=== PATIENT | female | born 1935 | race Caucasian/White ===

== ENCOUNTER → 2017-11-24 | Outpatient (CLI) | payer MEDICARE, BC | LOC: MC.RAD 07:58 | DX: Z12.31 Encounter for screening mammogram for malignant neoplasm of breast (principal); N64.89 Other specified disorders of breast ==

== ENCOUNTER → 2017-12-01 | Outpatient (CLI) | payer MEDICARE, BC | LOC: MC.RAD 13:24 | DX: R92.8 Other abnormal and inconclusive findings on diagnostic imaging of breast (principal); N63.32 Unspecified lump in axillary tail of the left breast | CPT/HCPCS: G0279 ==

== ENCOUNTER → 2018-06-06 | Outpatient (CLI) | payer MEDICARE, BC | LOC: MC.RAD 08:25 | DX: N63.31 Unspecified lump in axillary tail of the right breast (principal); Z87.898 Personal history of other specified conditions | CPT/HCPCS: G0279 ==

== ENCOUNTER → 2019-11-02 | Outpatient (CLI) | payer MEDICARE, BC | LOC: MC.RAD 14:18 | DX: Z12.31 Encounter for screening mammogram for malignant neoplasm of breast (principal); Z78.0 Asymptomatic menopausal state ==

== ENCOUNTER → 2020-05-09 | Outpatient (CLI) | payer MEDICARE, BC ==
[~2020-05-09] MED LIST: AMOXICILLIN 8751 TAB PO; ANTACID500 M1; ASCORBATE CALCIUM PO; EFUDEX40 GM TP; FERROUS SU300 MG/5 M PO; FERROUS SU325 MG/TAB PO; FOSAMAX 70MG TA70 MG PO; FOSAMAX5 MG; GLUCOPHAGE500 MG/TAB PO; INDERAL 10MG10 MG PO; INDERAL 20MG20 MG PO; INLYTA1 MG PO; LASIX 20MG TABL20 MG PO; LEVEMIR100 U/ML SQ; MASON NATURAL2000 IU PO; METHOTREXA2.5 MG/TAB PO; NOVOLOG 100U100 U/M1 SQ; OMEGA-3 1000 MG1 CAP PO; OMNICEF 300MG300 MG PO; PREDNISONE10 MG PO; PRINIVIL10 MG PO; SYNTHROID0.1 MG/TAB PO; TYLENOL 500MG500 MG PO; ULTRAM 50MG TAB50 MG PO; VALIUM 5MG T5 MG/TAB PO; VITAMIN D PO; VTAMINC250TA PO; ZESTRIL 10MG10 MG PO; ZOFRAN8 MG PO; ZYRTEC ALLERGY10 MG PO; [UNRECOGNIZED DRUG - OTHER] PO
== END ==
LOC: MC.RAD 10:37
DX: N63.11 Unspecified lump in the right breast, upper outer quadrant (principal); M79.89 Other specified soft tissue disorders

== ENCOUNTER → 2020-05-30 | Outpatient (CLI) | payer MEDICARE, BC ==
[~2020-05-30] VITALS: Ht 157.5 cm; Wt 54.0 kg
[2020-05-30 09:24] VITALS: BP 159/76; PULSE 65
[2020-05-30 10:10] VITALS: BP 139/68; PULSE 62
--- NOTE | 2020-05-30 10:10 | NUR ---
DR BIRCH IN ROOM, PROCEDURE STARTED
[2020-05-30 10:15] VITALS: BP 149/62; PULSE 67
[2020-05-30 10:25] VITALS: BP 175/78; PULSE 66
--- NOTE | 2020-05-30 10:25 | NUR ---
BIOPSY SPECIMANS OBTAINED PUT IN FORMULIN. BANDAID OVER SITE, PT UP IN W/C, NO C/O PAIN OR CONCERNS
[2020-05-30 10:30] VITALS: BP 191/79; PULSE 66
[2020-05-30 10:45] VITALS: BP 165/87; PULSE 65
== END ==
LOC: COL.RAD 08:52
DX: Z98.890 Other specified postprocedural states (principal); C64.2 Malignant neoplasm of left kidney, except renal pelvis; R22.2 Localized swelling, mass and lump, trunk
CPT/HCPCS: 32108

== ENCOUNTER 2020-06-20 11:41 | Inpatient (IN) | payer MEDICARE, BC ==
[~2020-06-20] VITALS: Ht 157.5 cm; Wt 35.1 kg
[~2020-06-20 11:41] MED LIST changes: -AMOXICILLIN 8751 TAB PO; -ANTACID500 M1; -ASCORBATE CALCIUM PO; -EFUDEX40 GM TP; -FERROUS SU300 MG/5 M PO; -FOSAMAX 70MG TA70 MG PO; -FOSAMAX5 MG; -GLUCOPHAGE500 MG/TAB PO; -INDERAL 10MG10 MG PO; -INLYTA1 MG PO; -LASIX 20MG TABL20 MG PO; -LEVEMIR100 U/ML SQ; -METHOTREXA2.5 MG/TAB PO; -NOVOLOG 100U100 U/M1 SQ; -OMEGA-3 1000 MG1 CAP PO; -OMNICEF 300MG300 MG PO; -PRINIVIL10 MG PO; -TYLENOL 500MG500 MG PO; -ULTRAM 50MG TAB50 MG PO; -VALIUM 5MG T5 MG/TAB PO; -VITAMIN D PO; -VTAMINC250TA PO; -ZESTRIL 10MG10 MG PO; -ZOFRAN8 MG PO; -[UNRECOGNIZED DRUG - OTHER] PO
[2020-06-20 12:26] LABS: BASO # 0.1 (0.0-0.2); BASO % 0.6 % (0.0-2.0); EOS # 0.1 (0.0-0.7); EOS % 0.9 % (0-4.0); GRAN # 11.6 (1.4-6.5); GRAN % 79.4 % (42.2-75.2); HEMATOCRIT 39.1 % (37.0-47.0); HEMOGLOBIN 12.3 g/dl (12.5-16.0); LYMPH # 1.3 (1.2-3.4); LYMPH % 9.2 % (20.0-51.0); MEAN CELL VOLUME 85 fl (80.0-100.0); MEAN CORPUSCULAR HEMOGLOBIN 27 pg (27.0-31.0); MEAN CORPUSCULAR HGB CONC 32 g/dl (33.0-37.0); MEAN PLATELET VOLUME 9.2 fl (7.4-10.4); MONO # 1.3 (0.1-0.6); MONO % 8.9 % (1.7-9.3); PLATELET COUNT 342 K/mm3 (130-400); RED BLOOD COUNT 4.62 M/mm3 (4.10-5.30); REDCELL DISTRIBUTION WIDTH-CV 13.8 % (11.5-14.5)
[2020-06-20 12:32] LABS: ALBUMIN 3.3 gm/dL (3.5-5.0); BILIRUBIN,TOTAL 0.4 mg/dL (0.0-1.0); CALCIUM 8.5 mg/dL (8.4-10.2); CREATININE, serum 0.46 (0.52-1.25); POTASSIUM 3.7 mmol/L (3.4-5.0); TOTAL PROTEIN 6.7 gm/dL (6.4-8.2)
[2020-06-20 12:51] LABS: TROPONIN-I 0.048 ng/mL (0.000-0.035)
[2020-06-20] MEDS ORDERED: ZOFRAN8 MG PO (14:43)
[2020-06-20] MEDS ORDERED: INLYTA1 MG PO (14:52)
[2020-06-20] MEDS ORDERED: ULTRAM 50MG TAB50 MG PO (14:52)
[2020-06-20 15:25] VITALS: BP 119/50; PULSE 100; TEMP 98.6
--- NOTE | 2020-06-20 15:30 | NUR ---
PATIENT ADMITED INTO ROOM 323 FROM ER. A&O BUT SLOW TO RESPOND. DAUGHTER REPORTS THEY THINK THE PATIENT FELL IN THE NIGHT AND WASN'T FOUND TILL MORNING. PATIENT HAS NOT HAD ANY SLEEP. VSS. DENIES PAIN. HEAD TO TOE ASSESSMENT COMPLETE. ORIENTED TO ROOM. DAUGHTER & FRIEND NOW AT BEDSIDE.
--- NOTE | 2020-06-20 17:15 | NUR ---
PATIENT REQUESTING TO GO TO THE BATHROOM AND BECAME VERY DIZZY AND SHAKING WHEN SAT UP WITH PCT AND NURSE. PATIENT WANTING TO LAY BACK DOWN. PATIENT WAS VERY SYMPTOMATIC WITH ACTIVITY. REPOSITIONED TO COMFORT UP IN BED. PURE WICK INPLACE. FAMILY & FRIEND AT BEDSIDE. WILL MONITOR.
[2020-06-20 18:51] VITALS: BP 129/50; PULSE 84; TEMP 99.2
--- NOTE | 2020-06-20 19:30 | NUR ---
Pt. sitting up in bed. Pt. is A&OX3, assessment complete. IV to rt. wrist patent IV fluids infusing per orders. Pt. denies pain or other needs, call light within reach.
[2020-06-20 22:01] VITALS: BP 128/46; PULSE 84; TEMP 97.9
[2020-06-21] VITALS (10 sets, daily range): BP systolic 105–188; BP diastolic 39–91; PULSE 60–87; TEMP 97.7–100.5
--- NOTE | 2020-06-21 07:10 | NUR ---
DURING SHIFT REPORT PATIENT WAS FOUND TO HAVE NOT VOIDED ALL NIGHT AND PURE WICK CANNISTER IS EMPTY. BLADDER SCAN SHOWED 800CC. NOTED ELEVATED B/P WITH A SYSTOLIC IN THE 160-180'S. TEMP OF 100.5. PATIENT SKIN IS WARM TO TOUCH, FACE IS RED, AND SHE REPORTS NOT FEELING WELL. PATIENT IS VERY SYMPTOMATIC WHEN REPOSITIONED AND BECOMES VERY DIZZY. CALLED HOSPITALIST, SEE ORDERS. NURSE, STUDENT NURSE & INSTRUCTOR AT BEDSIDE. AVALOS PLACED STAT, GAVE PRN ZOFRAN & TYLENOL FOR NAUSEA AND FEVER. COOL CLOTH APPLIED TO HEAD. ROOM TEMP TURNED DOWN. WILL MONITOR.
[2020-06-21 07:15] LABS: BASO # 0.1 (0.0-0.2); BASO % 0.5 % (0.0-2.0); EOS # 0.1 (0.0-0.7); GRAN # 7.9 (1.4-6.5); GRAN % 71.1 % (42.2-75.2); LYMPH # 1.9 (1.2-3.4); LYMPH % 16.7 % (20.0-51.0); MEAN CELL VOLUME 86 fl (80.0-100.0); MEAN CORPUSCULAR HEMOGLOBIN 27 pg (27.0-31.0); MEAN CORPUSCULAR HGB CONC 31 g/dl (33.0-37.0); MONO # 1.1 (0.1-0.6); MONO % 9.8 % (1.7-9.3); PLATELET COUNT 353 K/mm3 (130-400); REDCELL DISTRIBUTION WIDTH-CV 14.3 % (11.5-14.5)
[2020-06-21 07:16] LABS: HEMATOCRIT 35.1 % (37.0-47.0)
[2020-06-21 07:32] LABS: CALCIUM 8.1 mg/dL (8.4-10.2); CREATININE, serum 0.54 (0.52-1.25); POTASSIUM 3.8 mmol/L (3.4-5.0)
--- NOTE | 2020-06-21 08:30 | NUR ---
ECHO AT BEDSIDE
--- NOTE | 2020-06-21 09:00 | NUR ---
HOSPITALIST TOBIAS ROUNDING, SEE ORDERS.
--- NOTE | 2020-06-21 09:30 | NUR ---
HOSPITALIST TEAM ROUNDING, SEE ORDERS. PATIENT'S FRIEND AT BEDSIDE.
--- NOTE | 2020-06-21 10:36 | NUR ---
Vancomycin Initial Dosing Pharmacy Note Ordering provider: José Luis Kumar MD Indication/duration: Meningitis, 7 days Relevant comorbidities: renal cancer on chemotherapy LABS: SCr 0.54, CrCl~25, GFR 107 Recommendation: Will give Vancomycin 750 mg IV x1 loading dose, then Vancomycin 500 mg IV q24h. Pharmacy will continue to monitor and check a Vancomycin trough on 06/24/20. Loading dose: 750 mg Maintenance dose: 500 mg every 12 hours Trough goal: 15-20 ug/mL
--- NOTE | 2020-06-21 10:54 | NUR ---
PATIENT GOING DOWN TO MRI VIA BED.
--- NOTE | 2020-06-21 12:10 | NUR ---
PATIENT BACK IN ROOM FROM MRI & LUMBAR PUNCTURE. PATIENT RESTING FLAT TILL 1300. CALL LIGHT IN REACH. NO OTHER NEEDS. STUDENT NURSE AT BEDSIDE.
[2020-06-21 12:32] LABS: GLUCOSE,CSF 75 mg/dL (40-70); TOTAL PROTEIN,CSF 66 mg/dL (15-45)
[2020-06-21 12:43] LABS: CSF MONONUCLEAR 91 % (70-100); CSF POLYMORPHONUCLEAR 10 % (0-6); CSF RBC 1000 /mm3 (0-0)
[2020-06-21 12:45] LABS: CSF APPEARANCE CLEAR; CSF COLOR COLORLESS
[2020-06-21 12:49] LABS: COLLECTION METHOD CATHETER
[2020-06-21 12:50] LABS: PH 6 (5-8); SQUAMOUS EPITHELIAL None Seen /hpf; URINE APPEARANCE Clear; URINE BILIRUBIN Negative (NEGATIVE); URINE BLOOD Negative (NEGATIVE); URINE COLOR Yellow; URINE GLUCOSE Negative (NEGATIVE); URINE KETONE Negative (NEGATIVE); URINE LEUKOCYTE ESTERASE Negative (NEGATIVE); URINE NITRATE Negative (NEGATIVE); URINE PROTEIN(semi-quant) 1+ (NEGATIVE); URINE UROBILINOGEN Negative (NEGATIVE)
[2020-06-21 12:51] LABS: MUCOUS Present /lpf; URINE BACTERIA None Seen /hpf
--- NOTE | 2020-06-21 13:45 | NUR ---
HOSPITALIST TALKED WITH NURSING ABOUT MRI SHOWING ENCEPHALITIS, AND LUMBAR PUNTURE SHOWED SOME BACTERIA. PATIENT PLACED ON PRECAUTIONS, FOR 24 HOURS FROM IV ANTIBIOTICS, PER INFECTIOUS DISEASE RECOMMENDATIONS. PATIENT ALSO PLACED ON TELE. PATIENT IS MUCH MORE A&O AND REPORTS SHE FEELS BETTER. WILL CONTINUE TO MONITOR.
--- NOTE | 2020-06-21 14:31 | NUR ---
Quality Assurance Manager attended clinical rounds with the team then met with patient and her friend, Concepcion (ph#[phone]) to discuss discharge planning. Patient had some difficulty answering questions during intake. Patient lives alone in [place] and sees Dr. Valadez for primary care. Patient obtains medications from [facility], but Concepcion states they are going to change pharmacies to one that will deliver to patient's home. Patient normally is independent with ADLS and does not use DME. Concepcion states patient normally walks 3-4 miles a day. Patient began chemotherapy on 06/12/[address] [facility]. Concepcion states that patient fell in her home and this is not normal for her. Concepcion advised that patient's DPOA-HC is her niece Suki (ph#[phone]) who lives in [place]. Concepcion states the Cancer Center should have a copy. PT/OT have been ordered for patient. Concepcion expressed concern about patient returning home alone upon discharge and thinks patient may need to go to SNF upon discharge. Concepcion is agreeable to have referrals sent to [facility] and [facility] [employer]. Following intake, KWASI contacted both facilities and faxed referrals. KWASI contacted BRANDAN Mccarthy at Dr. Steven's office and left a message. KWASI then received a message from Shari who advised Dr. Steven is in support of patient going to rehab if needed. KWASI also requested a copy of DPOA-HC, which the [facility] faxed over. KWASI placed copy in chart, which designates Suki. KWASI then followed up with Suki on discharge plan. Suki is agreeable to referrals sent and would like to speak with both facilities about visitation. KWASI notified both facilities of this. Discharge Plan: Awaiting PT/OT Eval. Referrals out to [facility] and [facility].
--- NOTE | 2020-06-21 15:29 | NUR ---
Pt had been taking AXITINIB (inlyta) which is a chemotherapy agent at home with her last dose being 06/19. This medication can be present in urine and stool for 42 hours after administration and should be clear from urine and stool as of early this am. If she should restart this medication, precautions of double gloves and gown should be worn when having contact with urine or stool for 42 hours following administration.
--- NOTE | 2020-06-21 21:00 | NUR ---
Patient resting in bed with some complaints of pain to her back. Patient reqests to be turned onto her side. Educated on no free water. Fluids infusing to right wrist. VSS, no fevers. No additional needs at this time. Call light in reach.
[2020-06-22 04:10] VITALS: BP 145/96; PULSE 79; TEMP 98.6
--- NOTE | 2020-06-22 06:35 | NUR ---
Patient is alert and oriented this morning with no complaints.
[2020-06-22 07:26] LABS: BASO # 0.1 (0.0-0.2); BASO % 0.5 % (0.0-2.0); EOS # 0.1 (0.0-0.7); EOS % 1.2 % (0-4.0); GRAN # 6.8 (1.4-6.5); HEMOGLOBIN 10.3 g/dl (12.5-16.0); LYMPH # 1.9 (1.2-3.4); LYMPH % 18.4 % (20.0-51.0); MEAN CELL VOLUME 85 fl (80.0-100.0); MEAN CORPUSCULAR HEMOGLOBIN 26 pg (27.0-31.0); MEAN CORPUSCULAR HGB CONC 31 g/dl (33.0-37.0); MEAN PLATELET VOLUME 9.8 fl (7.4-10.4); MONO # 1.3 (0.1-0.6); MONO % 13.1 % (1.7-9.3); PLATELET COUNT 325 K/mm3 (130-400); RED BLOOD COUNT 3.94 M/mm3 (4.10-5.30); REDCELL DISTRIBUTION WIDTH-CV 14.3 % (11.5-14.5)
[2020-06-22 07:29] LABS: CALCIUM 7.9 mg/dL (8.4-10.2); CREATININE, serum 0.45 (0.52-1.25); HEMATOCRIT 33.5 % (37.0-47.0); POTASSIUM 3.7 mmol/L (3.4-5.0)
[2020-06-22 08:02] VITALS: BP 126/50; PULSE 69; TEMP 98.7
[2020-06-22 11:14] VITALS: BP 127/59; PULSE 67; TEMP 97.9
[2020-06-22 15:53] VITALS: BP 142/47; PULSE 65; TEMP 98.3
[2020-06-22 20:03] VITALS: BP 157/70; PULSE 67; TEMP 98.9
--- NOTE | 2020-06-22 22:31 | NUR ---
Patient resting in bed. Alert and oriented. No complaints of pain. Antibiotics infusing to right wrist. Ram draining clear yellow urine to dependent drainage. Patient still having some dizziness with movement. No additional needs at this time. Call light in reach.
[2020-06-22 23:45] VITALS: BP 157/60; PULSE 96; TEMP 98.6
--- NOTE | 2020-06-23 00:24 | NUR ---
Patient called and reported that when she was changing positions she got dizzy and felt like she might get sick. Patient was given a bucket and zofran was administered.
[2020-06-23 04:16] VITALS: BP 152/50; PULSE 71; TEMP 97.3
--- NOTE | 2020-06-23 06:57 | NUR ---
Patient lying in bed, she is awake and oriented reported she had a bad night since she felt very dizzy. No further needs at the moment.
[2020-06-23 07:15] LABS: HEMOGLOBIN 10.7 g/dl (12.5-16.0); MEAN CELL VOLUME 85 fl (80.0-100.0); MEAN CORPUSCULAR HEMOGLOBIN 26 pg (27.0-31.0); MEAN CORPUSCULAR HGB CONC 31 g/dl (33.0-37.0); MEAN PLATELET VOLUME 9.9 fl (7.4-10.4); PLATELET COUNT 333 K/mm3 (130-400); RED BLOOD COUNT 4.07 M/mm3 (4.10-5.30); REDCELL DISTRIBUTION WIDTH-CV 14.6 % (11.5-14.5)
[2020-06-23 07:23] LABS: CALCIUM 8.4 mg/dL (8.4-10.2); CREATININE, serum 0.43 (0.52-1.25); POTASSIUM 3.4 mmol/L (3.4-5.0)
[2020-06-23 07:29] LABS: HEMATOCRIT 34.6 % (37.0-47.0)
[2020-06-23 08:02] VITALS: BP 104/43; BP 185/67; PULSE 84; PULSE 98; TEMP 97.5; TEMP 97.9
[2020-06-23 08:06] LABS: BAND 8 % (0-10); BASOPHIL 2 % (0-2); EOSINOPHIL 2 % (0-4); LYMPHOCYTE 13 % (20.0-51.0); NEUTROPHILS 65 % (42.0-75.2); PLATELET ESTIMATE NORMAL (NORMAL)
[2020-06-23 08:08] LABS: HYPOCHROMIA 1+
--- NOTE | 2020-06-23 08:54 | NUR ---
Patient is lying in bed, alert and oriented x 4, vital signs stable, was repositioned, no additinal needs at the moment.
[2020-06-23 12:53] VITALS: BP 152/65; PULSE 75; TEMP 97.8
[2020-06-23 17:20] VITALS: BP 180/71; PULSE 70; TEMP 98.6
--- NOTE | 2020-06-23 20:00 | NUR ---
Patient resting in bed. Alert and oriented x4. No complaints of pain. No additional needs at this time. Call light in reach.
[2020-06-23 20:39] VITALS: BP 210/76; PULSE 86; TEMP 98.6
--- NOTE | 2020-06-23 21:00 | NUR ---
Notified by GIN INSPECTOR that blood pressure was elevated in the 200s. Called TOBIAS Lemus, and administered 2100 dose of propanalol. PAtient was still alert and oriented and denies chest pain or headache.
--- NOTE | 2020-06-23 21:45 | NUR ---
When SLIP COVER MAKER went to recheck patient's blood pressure, patient was found sweaty and gupta in color. SLIP COVER MAKER called TOBIAS Lemus, and this nurse into the room. PAtient's O2 was in the 30s. An oxymax was applied immediately and patient's oxygen started to come up and reached the 90s. Patient is no longer oriented. Called RT.
--- NOTE | 2020-06-23 22:00 | NUR ---
New orders for head CT and chest CT. Called radiology to let them know. PAtient is on 15 L via oxymax. Patient is restless and does not want to keep the oxymax on.
[2020-06-23 22:10] LABS: ARTERIAL BLD GAS O2 SATURATION 96.6 % (92-100); ARTERIAL BLD GAS TCO2 CT 25.4; ARTERIAL BLOOD GAS HCO3 23.7 meq/L (22-26); ARTERIAL BLOOD GAS PCO2 54.6 mmHg (35-45); ARTERIAL BLOOD GAS PO2 99.7 mmHg (80-100); ARTERIAL BLOOD GAS pH 7.26 (7.35-7.45)
[2020-06-24] VITALS (7 sets, daily range): BP systolic 115–179; BP diastolic 57–80; PULSE 72–94; TEMP 97.6–98.9
--- NOTE | 2020-06-24 00:40 | NUR ---
PAtient back up from CT. Still on 15 L via oxymax. Patient is agitated and does not want to keep the mask on.
--- NOTE | 2020-06-24 01:41 | NUR ---
Patient is now on BIPAP and sleeping.
[2020-06-24 01:42] LABS: HEMATOCRIT 39.3 % (37.0-47.0); HEMOGLOBIN 11.6 g/dl (12.5-16.0); MEAN CORPUSCULAR HEMOGLOBIN 26 pg (27.0-31.0); MEAN CORPUSCULAR HGB CONC 30 g/dl (33.0-37.0); MEAN PLATELET VOLUME 9.5 fl (7.4-10.4); PLATELET COUNT 365 K/mm3 (130-400); RED BLOOD COUNT 4.39 M/mm3 (4.10-5.30); REDCELL DISTRIBUTION WIDTH-CV 14.8 % (11.5-14.5)
[2020-06-24 01:50] LABS: CALCIUM 8.4 mg/dL (8.4-10.2); CREATININE, serum 0.62 (0.52-1.25)
[2020-06-24 01:55] LABS: MEAN CELL VOLUME 90 fl (80.0-100.0)
[2020-06-24 02:05] LABS: TROPONIN-I 0.645 ng/mL (0.000-0.035)
[2020-06-24 02:38] LABS: BAND 7 % (0-10); EOSINOPHIL 1 % (0-4); LYMPHOCYTE 8 % (20.0-51.0); MYELOCYTE 1 % (0-0); NEUTROPHILS 78 % (42.0-75.2); PLATELET ESTIMATE NORMAL (NORMAL)
--- NOTE | 2020-06-24 06:25 | NUR ---
Patient alert and oriented this morning. She asked about what happened last night stating she did not remember much. Explained that patient had to be placed on Bipap to help her breathe.
--- NOTE | 2020-06-24 08:00 | NUR ---
PATIENT ALERT AND ORIENTED X3. VSS. NO COMPLAINTS OF PAIN OR N/V AT THIS TIME. MORNING MEDS ARE PASSED AND HEAD TO TOE ASSESSMENT COMPLETED. RT AT BEDSIDE, TAKES PATIENT OFF OF BIPAP AND PUT ONTO NASAL CANULA AT 4L. NIECE AT BEDSIDE. LUNGS ARE CLEAR IN ALL LOBES, LUNG SOUNDS ARE SHALLOW AND ARE SLIGHTLTY DIMINISHED IN BILATERAL LOWER LOBES. PATIENT DENIES SHORTNESS OF BREATH. HEART SOUNDS ARE REGULAR AND NORMAL. PULSES ARE REGULAR PALPABLE. BOWEL SOUNDS ARE ACTIVE IN ALL FOUR QUADRANTS. NO EDEMA NOTED IN THE LOWER EXTREMETIES. PATIENT DENIES ANY PAIN OR TENDERNESS IN THE LOWER EXTREMITIES. THERE IS NO REDNESS OR WARMTH IN THE CALVES. WILL CONTINUE TO MONITOR. BED LEFT IN THE LOWEST POSITION AND CALL LIGHT LEFT WITHIN REACH.
[2020-06-24 11:30] LABS: HSV 2 DNA PCR QUAL Not Detected (())
--- NOTE | 2020-06-24 12:58 | NUR ---
First visit from the real estate services coordinator. prayed with patient. No other needs right now.
--- NOTE | 2020-06-24 15:49 | NUR ---
Linux Devops Engineer faxed clinical updates to [facility] [employer]. SW followed up with patient's niece, Suki who advised patient is not ready to discharge at this time and had a difficult night. SW awaiting screens from both SNFs.
--- NOTE | 2020-06-24 20:20 | NUR ---
Pt. sitting up in bed. Pt. is A&OX3, assessment complete. IV to rt. forearm patent, IV abx infusing at this time. Pt. denies pain or other needs, call light within reach.
[2020-06-25 01:41] VITALS: BP 128/53
[2020-06-25 04:08] VITALS: BP 139/70; PULSE 73; TEMP 98.9
[2020-06-25 07:29] LABS: CALCIUM 8.7 mg/dL (8.4-10.2); CREATININE, serum 0.47 (0.52-1.25); HEMOGLOBIN 10.8 g/dl (12.5-16.0); MEAN CELL VOLUME 87 fl (80.0-100.0); MEAN CORPUSCULAR HEMOGLOBIN 27 pg (27.0-31.0); MEAN CORPUSCULAR HGB CONC 30 g/dl (33.0-37.0); MEAN PLATELET VOLUME 10.1 fl (7.4-10.4); PLATELET COUNT 336 K/mm3 (130-400); POTASSIUM 3.1 mmol/L (3.4-5.0); RED BLOOD COUNT 4.08 M/mm3 (4.10-5.30); REDCELL DISTRIBUTION WIDTH-CV 14.9 % (11.5-14.5)
[2020-06-25 07:37] LABS: HEMATOCRIT 35.5 % (37.0-47.0)
[2020-06-25 07:52] VITALS: BP 151/72; PULSE 89; TEMP 98.3
--- NOTE | 2020-06-25 08:00 | NUR ---
AGREE WITH CAPSTONE STUDENT ASSESSMENT, SEE CHARTING
--- NOTE | 2020-06-25 08:00 | NUR ---
PATIENT ALERT AND ORIENTED X3. VSS, ON 5L OF O2 VIA NC AT 99% SATURATION. NO COMPLAINTS OF PAIN OR N/V AT THIS TIME. MORNING MEDS PASSED. HEAD TO TOE ASSESSMENT COMPLETED. LUNG SOUNDS ARE CLEAR BUT DIMINISHED IN THE LOWER LOBES. BREATHS ARE SHALLOW AND LABORED, PATIENT DOES NOT COMPLAIN OF SHORTNESS OF BREATH AT THIS TIME. HEART SOUNDS ARE REGULAR AND NORMAL. BOWEL SOUNDS ARE ACTIVE IN ALL FOUR QUADRANTS. ABDOMEN IS SOFT. PATIENT DENIES ANY PAIN OR TENDERNESS IN THE LOWER EXTREMITIES. THERE IS NO REDNESS OR ABNORMAL WARMTH IN THE CALVES. NO EDEMA NOTED. WILL CONTINUE TO MONITOR. BED IS LEFT IN THE LOWEST POSITION AND CALL LIGHT LEFT WITHIN REACH.
[2020-06-25 08:18] LABS: BAND 1 % (0-10); LYMPHOCYTE 14 % (20.0-51.0); METAMYELOCYTE 1 % (0-0); NEUTROPHILS 78 % (42.0-75.2); PLATELET ESTIMATE NORMAL (NORMAL)
[2020-06-25 08:20] LABS: HYPOCHROMIA 4+; OVALOCYTES 1+; POIKILOCYTOSIS 1+
--- NOTE | 2020-06-25 09:20 | NUR ---
AT BEDSIDE, DISCUSSED RIGHT SIDE THORO WITH PATIENT AND NIECE. EXTRACTED APPROX 650CC OF YELLOW PLEURAL FLUID, SENT TO LAB, SEE ORDERS. PATIENT TOLDERATED WELL. NO C/O SOA OR PAIN. PATIENT RESTING UP IN BED WITH HOB ELEVATED. 02 @ 5L PER NC WITH SATS IN MID TO UPPER 90'S.
--- NOTE | 2020-06-25 09:45 | NUR ---
HOSPITALIST TEAM ROUNDING. SSI CHANGED FROM LOW TO HIGH, SEE MAR.
[2020-06-25 10:33] LABS: PLEURAL FLUID RBC 1000 /mm3 (0-0); PLEURAL FLUID WBC 279 /mm3
[2020-06-25 10:37] LABS: PLEURAL FLUID APPEARANCE HAZY; PLEURAL FLUID COLOR YELLOW
--- NOTE | 2020-06-25 10:43 | NUR ---
Cinetechnician attended clinical rounds with the team. Patient's niece inquired about discharge disposition and SW advised that PT continues to recommend SNF, which is why [facility]errals to [facility] were sent. SW contacted both facilities and faxed clinical updates. Angelia from [facility] advised that they will continue to follow and would like more updates. SW will continue to follow.
[2020-06-25 10:53] LABS: GLUCOSE,PLEURAL FLUID 181 mg/dL
[2020-06-25 10:58] LABS: TOTAL PROTEIN,PLEURAL FLUID < 2.0 gm/dL
[2020-06-25 11:56] VITALS: BP 124/50; PULSE 73; TEMP 97.4
[2020-06-25 16:28] VITALS: BP 135/57; PULSE 75; TEMP 98.4
--- NOTE | 2020-06-25 16:55 | NUR ---
PATIENT'S NIECE CALLED AND ASKED IF NURSING WOULD COME LOOK AT LEFT WRIST IV SITE. NOTED SWELLING, REDDNESS & TENDERNESS TO LEFT WRIST. DC'D IV SITE AND COVERED WITH GAUZE & COBAN. RE-STARTED 22 GAUZE IV INTO RIGHT WRIST ON FIRST ATTEMPT. IV ABX INFUSING VIA PUMP INTO RIGHT WRIST.
[2020-06-25 20:23] VITALS: BP 142/48; PULSE 85; TEMP 98.1
--- NOTE | 2020-06-25 21:03 | NUR ---
Patient laying in bed and resting upon enter the room. Shift assessment completed. Patient pleasant, A/O x3. Patient denies SOB/dyspnea, headache, dizziness, or N/V. Patient currently on oxygen 2L via NC with SPO2 96%. Breathing even and unlabored. No acute respiratory distress noted. Patient reports minor discomfort to her right side of lung area but denies any pain meds at this time. IV ABX is currently infusing well to right side of wrist area. Ram catheter in place and draining clear yellow urine. All scheduled meds given per MAY. Call light within reach. Patient denies any needs at this time.
[2020-06-25 23:44] LABS: BODY FLUID PH (AMS) 9 (())
[2020-06-26 00:44] VITALS: BP 135/69; PULSE 75; TEMP 98.7
[2020-06-26 04:45] VITALS: BP 136/61; PULSE 74; TEMP 98.1
--- NOTE | 2020-06-26 05:20 | NUR ---
Patient slept well throughout the shift. VS stable. SPO2 remains 96-98% on 2L via NC. Patient refused Bi-pap machine. Per patient, as long as oxygen level is good, she won't need it. Call light within reach. Will give report to day shift nurse.
--- NOTE | 2020-06-26 07:07 | NUR ---
Patient is lying in bed, awake, alert and oriented, vital signs stable. call light in hand, no further needs at the moment.
[2020-06-26 08:00] VITALS: BP 129/68; PULSE 82; TEMP 99.1
--- NOTE | 2020-06-26 08:00 | NUR ---
Patient is lying in bed, resting, VSS, alert and oriented. no further needs right now.
[2020-06-26 08:43] LABS: BASO # 0.1 (0.0-0.2); BASO % 0.5 % (0.0-2.0); EOS # 0.3 (0.0-0.7); EOS % 2.2 % (0-4.0); GRAN # 10.5 (1.4-6.5); HEMATOCRIT 37.5 % (37.0-47.0); HEMOGLOBIN 11.5 g/dl (12.5-16.0); LYMPH # 2.7 (1.2-3.4); LYMPH % 17.5 % (20.0-51.0); MEAN CELL VOLUME 88 fl (80.0-100.0); MEAN CORPUSCULAR HEMOGLOBIN 27 pg (27.0-31.0); MEAN CORPUSCULAR HGB CONC 31 g/dl (33.0-37.0); MEAN PLATELET VOLUME 9.6 fl (7.4-10.4); MONO # 1.5 (0.1-0.6); MONO % 9.7 % (1.7-9.3); PLATELET COUNT 330 K/mm3 (130-400); RED BLOOD COUNT 4.27 M/mm3 (4.10-5.30); REDCELL DISTRIBUTION WIDTH-CV 15.7 % (11.5-14.5)
[2020-06-26 08:57] LABS: ALBUMIN 2.7 gm/dL (3.5-5.0); BILIRUBIN,TOTAL 0.5 mg/dL (0.0-1.0); CALCIUM 8.5 mg/dL (8.4-10.2); CREATININE, serum 0.48 (0.52-1.25); POTASSIUM 3.8 mmol/L (3.4-5.0); TOTAL PROTEIN 5.6 gm/dL (6.4-8.2)
[2020-06-26 11:10] VITALS: BP 118/46; PULSE 77; TEMP 98.6
--- NOTE | 2020-06-26 11:17 | NUR ---
AGREE WITH [facility] STUDENT'S ASSESMENTS THIS SHIFT.
[2020-06-26 15:20] VITALS: BP 115/62; PULSE 71; TEMP 98.7
[2020-06-26] MEDS ORDERED: ZESTRIL 10MG10 MG PO (15:50)
[2020-06-26] MEDS ORDERED: TYLENOL 500MG500 MG PO (15:52)
--- NOTE | 2020-06-26 16:13 | NUR ---
Retail Associate attended clinical rounds with the team and patient will possibly be ready for discharge tomorrow, however patient's niece, Suki advised she would prefer discharge on Wednesday. KWASI and Hospitalist advised that if patient is medically cleared, she will discharge. KWASI faxed clinical updates to [facility] and [facility] [employer]. Suki contacted patient after touring both [facility] and advised that she and patient prefer [facility]. Suki stated she was given paperwork to complete from [facility]. KWASI contacted Angelia at [facility] who advised they are able to accept. Discharge Plan: [facility]
--- NOTE | 2020-06-26 17:30 | NUR ---
Patient is resting in bed, just finished dinner, vss, alert and oriented x4. Reports no pain or further need at the moment.
[2020-06-26 20:20] VITALS: BP 105/37; PULSE 76; TEMP 98.9
--- NOTE | 2020-06-26 20:30 | NUR ---
Pt. sitting up in bed at this time. Pt. is A&OX3, assessment complete. INT to rt. wrist patent. Pt. denies pain or other needs, call light within reach.
[2020-06-27 00:04] VITALS: BP 117/44; PULSE 65; TEMP 97.5
[2020-06-27 03:40] VITALS: BP 122/41; PULSE 72; TEMP 98.6
[2020-06-27 06:22] LABS: BASO # 0.1 (0.0-0.2); BASO % 0.5 % (0.0-2.0); EOS # 0.2 (0.0-0.7); EOS % 1.9 % (0-4.0); GRAN # 8.2 (1.4-6.5); GRAN % 63.8 % (42.2-75.2); HEMOGLOBIN 10.6 g/dl (12.5-16.0); LYMPH # 2.7 (1.2-3.4); LYMPH % 21.3 % (20.0-51.0); MEAN CELL VOLUME 88 fl (80.0-100.0); MEAN CORPUSCULAR HEMOGLOBIN 26 pg (27.0-31.0); MEAN CORPUSCULAR HGB CONC 30 g/dl (33.0-37.0); MEAN PLATELET VOLUME 9.6 fl (7.4-10.4); MONO # 1.5 (0.1-0.6); MONO % 11.5 % (1.7-9.3); PLATELET COUNT 323 K/mm3 (130-400); RED BLOOD COUNT 4.09 M/mm3 (4.10-5.30); REDCELL DISTRIBUTION WIDTH-CV 15.5 % (11.5-14.5)
[2020-06-27 06:27] LABS: HEMATOCRIT 35.9 % (37.0-47.0)
[2020-06-27 06:33] LABS: CALCIUM 8.2 mg/dL (8.4-10.2); CREATININE, serum 0.53 (0.52-1.25); POTASSIUM 3.7 mmol/L (3.4-5.0)
[2020-06-27 08:00] VITALS: BP 129/64; PULSE 86; TEMP 98.2
--- NOTE | 2020-06-27 08:00 | NUR ---
PATIENT IS A&O. VSS WITH TELE INPLACE. 02 @ 2L PER NC WITH SATS IN MID TO UPPER 90'S. PATIENT DENIES SOA OR CHEST PAIN. A&P LUNG MALONE CLEAR WITH DEMINISHED BASES. HEAD TO TOE ASSESSMENT COMPLETE. STUDENT NURSE WORKING WITH PATIENT, SEE CHARTING. AGREE WITH STUDENT ASSESSMENT. RIGHT WRIST IV TO INT. AVALOS TO DD WITH MOD AMOUNTS OF CLEAR YELLOW URINE NOTED. PT/OT CONSULTED. NO C/O N/V. TOLERATING ADA DIET. AM BS WAS 100. BREAKFAST TRAY ODERED. FRIEND AT BEDSIDE. CALL LIGHT IN REACH. NO OTHER NEEDS AT THIS TIME.
[2020-06-27] MEDS ORDERED: GLUCOPHAGE500 MG/TAB PO (08:46)
[2020-06-27] MEDS ORDERED: LASIX 20MG TABL20 MG PO (08:47)
[2020-06-27] MEDS ORDERED: LEVEMIR100 U/ML SQ (08:49)
[2020-06-27] MEDS ORDERED: NOVOLOG 100U100 U/M1 SQ (08:49)
[2020-06-27] MEDS ORDERED: AMOXICILLIN 8751 TAB PO (09:02)
--- NOTE | 2020-06-27 10:07 | NUR ---
pt tolerated room air well without ambulation, needed 1L towards the end of the walk and also was SOB at the end.
[2020-06-27 12:00] VITALS: BP 115/78; PULSE 71; TEMP 98.3
--- NOTE | 2020-06-27 14:02 | NUR ---
Patient is ready for discharge today to [facility]. Batter Mixer Helper coordinated with Angelia from [facility] to set transport time for 1425. SW contacted patient's niece, Suki to provide discharge time. SW also met with patient and patient's friend, Concepcion to provide discharge time. Patient is in agreement with discharge plan. KWASI faxed discharge orders and negative COVID results to Angelia at [facility] and also advised that patient will need oxygen during transport. Discharge Plan: [facility] Skilled today.
--- NOTE | 2020-06-27 14:45 | NUR ---
PATIENT DISCHARGING TO [facility]. DC'D IV AND COVERED SITE WITH GAUZE & COBAN. TELE OFF. PATIENT DRESSED AND USING THE BATHROOM BEFORE LEAVING.
--- NOTE | 2020-06-27 15:00 | NUR ---
PATIENT DISCHARGING WITH [facility] SERVICE. STUDENT NURSE MUNDO'Benitez IV AND TELE. PATIENT DRESSED AND PACKED FOR DISCHARGE. PATIENT DISCHARGED.
== END 2020-06-27 15:00 | DRG 871 ==
LOC: COL.ER 11:41 → SURG 13:02
PROVIDERS: Emergency Medicine; Hospitalist; Internal Medicine Pulmonary Disease; Physician Assistant; Student in an Organized Health Care Education/Training Program; ADMIT Internal Medicine
PROC: 009U3ZX Drainage of Spinal Canal, Percutaneous Approach, Diagnostic (ICD-10-PCS; 2020-06-21)
PROC: 0W993ZZ Drainage of Right Pleural Cavity, Percutaneous Approach (ICD-10-PCS; principal; 2020-06-25)
DX: A41.9 Sepsis, unspecified organism (principal); G03.0 Nonpyogenic meningitis; I21.A1 Myocardial infarction type 2; G92 Toxic encephalopathy; J96.01 Acute respiratory failure with hypoxia; J96.02 Acute respiratory failure with hypercapnia; C64.9 Malignant neoplasm of unspecified kidney, except renal pelvis; E87.1 Hypo-osmolality and hyponatremia; J90 Pleural effusion, not elsewhere classified; Z66 Do not resuscitate; M35.3 Polymyalgia rheumatica; T40.425A Adverse effect of tramadol, initial encounter; R77.8 Other specified abnormalities of plasma proteins; R22.2 Localized swelling, mass and lump, trunk; E87.6 Hypokalemia; I16.0 Hypertensive urgency; E03.9 Hypothyroidism, unspecified; I10 Essential (primary) hypertension; Z90.710 Acquired absence of both cervix and uterus; Z88.8 Allergy status to other drugs, medicaments and biological substances
CPT/HCPCS: 99223-AI; 99232-AI; 99233-AI; 99239; A4314; A9284; A9585; G0378; J0133; J0290; J0360; J0696; J1630; J1815; J1940; J2405; J2543; J3370; J7030; J7050; J7120; J7512; Q9967

== ENCOUNTER 2020-12-09 11:08 | Inpatient (IN) | payer MEDICARE, BC ==
[~2020-12-09] VITALS: Ht 157.5 cm; Wt 50.9 kg
[~2020-12-09 11:08] MED LIST changes: +AMOXICILLIN 8751 TAB PO; +GLUCOPHAGE500 MG/TAB PO; +INLYTA1 MG PO; +LASIX 20MG TABL20 MG PO; +LEVEMIR100 U/ML SQ; +NOVOLOG 100U100 U/M1 SQ; +TYLENOL 500MG500 MG PO; +ULTRAM 50MG TAB50 MG PO; +ZESTRIL 10MG10 MG PO; +ZOFRAN8 MG PO
[2020-12-09 12:35] LABS: ALBUMIN 3.9 gm/dL (3.4-4.8); BILIRUBIN,TOTAL 0.8 mg/dL (0.2-1.2); CALCIUM 10.1 mg/dL (8.4-10.2); CREATININE, serum 0.67 mg/dL (0.57-1.11); POTASSIUM 4.6 mmol/L (3.5-4.5); TOTAL PROTEIN 8.4 gm/dL (6.2-8.1)
[2020-12-09 12:40] LABS: BASO # 0.1 (0.0-0.2); BASO % 0.8 % (0.0-2.0); EOS % 0.3 % (0-4.0); GRAN # 8.1 (1.4-6.5); GRAN % 66.7 % (42.2-75.2); HEMATOCRIT 47.4 % (37.0-47.0); HEMOGLOBIN 15.3 g/dl (12.5-16.0); LYMPH # 2.6 (1.2-3.4); LYMPH % 21.4 % (20.0-51.0); MEAN CELL VOLUME 94 fl (80.0-100.0); MEAN CORPUSCULAR HEMOGLOBIN 30 pg (27.0-31.0); MEAN CORPUSCULAR HGB CONC 32 g/dl (33.0-37.0); MEAN PLATELET VOLUME 9.6 fl (7.4-10.4); MONO # 1.2 (0.1-0.6); MONO % 9.6 % (1.7-9.3); PLATELET COUNT 420 K/mm3 (130-400); RED BLOOD COUNT 5.03 M/mm3 (4.10-5.30); REDCELL DISTRIBUTION WIDTH-CV 15.3 % (11.5-14.5)
[2020-12-09 12:44] LABS: MUCOUS Present /lpf; PH 6 (5-8); SQUAMOUS EPITHELIAL None Seen /hpf; URINE APPEARANCE Hazy; URINE BACTERIA Rare /hpf; URINE BILIRUBIN Negative (NEGATIVE); URINE BLOOD Negative (NEGATIVE); URINE COLOR Yellow; URINE GLUCOSE Negative (NEGATIVE); URINE KETONE 1+ (NEGATIVE); URINE LEUKOCYTE ESTERASE Trace (NEGATIVE); URINE NITRATE Positive (NEGATIVE); URINE PROTEIN(semi-quant) 1+ (NEGATIVE); URINE UROBILINOGEN Negative (NEGATIVE)
[2020-12-09 12:50] LABS: COLLECTION METHOD CLEAN CATCH
--- NOTE | 2020-12-09 17:00 | NUR ---
Patient admitted to room 355 from ED for UTI. Upon initial assessment lungs clear in all sheppard, normal s1 and s2 sounds present, radial and pedal pulses +2 bilaterally, bowel sound present in all four quadrants. VSS. Patient drowsy and forgetful. Small skin tear noted on left elbow. Admission paperwork completed. Medications and allergies reviewed. VSS. PRN tylenol given for headache rated a 5/10. Left grasp noted to be weaker than the right. Patient denies any further pain, discomfort, SOA, or needs at this time. Call light in reach. Fall precautions in place. Suki López, at the bedside.
[2020-12-09 17:36] VITALS: BP 161/77; PULSE 92; TEMP 98.5
[2020-12-09] MEDS ORDERED: FOSAMAX 70MG TA70 MG PO (19:08)
[2020-12-09] MEDS ORDERED: ANTACID500 M1 (19:09)
[2020-12-09] MEDS ORDERED: FERROUS SU300 MG/5 M PO (19:11)
[2020-12-09] MEDS ORDERED: PRINIVIL10 MG PO (19:12)
[2020-12-09] MEDS ORDERED: GLUCOPHAGE500 MG/TAB PO (19:13)
[2020-12-09] MEDS ORDERED: OMEGA-3 1000 MG1 CAP PO (19:14)
[2020-12-09] MEDS ORDERED: PREDNISONE10 MG PO (19:15)
[2020-12-09] MEDS ORDERED: INDERAL 10MG10 MG PO (19:17)
[2020-12-09] MEDS ORDERED: ASCORBATE CALCIUM PO (19:19)
[2020-12-09] MEDS ORDERED: VITAMIN D PO (19:22)
[2020-12-09] MEDS ORDERED: [UNRECOGNIZED DRUG - OTHER] PO (19:22)
[2020-12-09] MEDS ORDERED: METHOTREXA2.5 MG/TAB PO (19:23)
[2020-12-09] MEDS ORDERED: INLYTA1 MG PO (19:25)
[2020-12-09 19:36] VITALS: BP 175/75; PULSE 93; TEMP 99.1
--- NOTE | 2020-12-09 20:00 | NUR ---
Assessment complete. Niece, Suki at bedside and medications are reviewed at this time. Patient is slightly drowsy, but arousable; she answers orientation questions correctly but is very forgetful. HR is normal/regular and lungs are clear; no edema is noticed and pt breathing on RA. Patient complains of neck/shoulder pain, which is a chronic problem, and PRN Tylenol is administered. Left elbow skin tear is noted and covered with bandaid. Call light in reach and bed alarm set. NS infusing.
[2020-12-09 22:41] VITALS: BP 170/60; PULSE 80; TEMP 100.1
[2020-12-09] MEDS ORDERED: VTAMINC250TA PO (23:44)
[2020-12-09] MEDS ORDERED: FOSAMAX5 MG (23:50)
[2020-12-10 06:36] LABS: BASO # 0.1 (0.0-0.2); BASO % 0.6 % (0.0-2.0); EOS # 0.1 (0.0-0.7); EOS % 0.4 % (0-4.0); GRAN # 7.6 (1.4-6.5); HEMATOCRIT 38.2 % (37.0-47.0); LYMPH # 2.5 (1.2-3.4); LYMPH % 21.2 % (20.0-51.0); MEAN CELL VOLUME 94 fl (80.0-100.0); MEAN CORPUSCULAR HEMOGLOBIN 30 pg (27.0-31.0); MEAN CORPUSCULAR HGB CONC 32 g/dl (33.0-37.0); MEAN PLATELET VOLUME 9.5 fl (7.4-10.4); MONO # 1.4 (0.1-0.6); MONO % 11.8 % (1.7-9.3); PLATELET COUNT 369 K/mm3 (130-400); RED BLOOD COUNT 4.06 M/mm3 (4.10-5.30); REDCELL DISTRIBUTION WIDTH-CV 15.2 % (11.5-14.5)
[2020-12-10 06:44] LABS: HEMOGLOBIN 12.2 g/dl (12.5-16.0)
[2020-12-10 06:59] LABS: CALCIUM 8.2 mg/dL (8.4-10.2); CREATININE, serum 0.52 mg/dL (0.57-1.11); POTASSIUM 3.7 mmol/L (3.5-4.5)
[2020-12-10 07:45] VITALS: BP 141/61; PULSE 87; TEMP 99.2
--- NOTE | 2020-12-10 08:32 | NUR ---
Pt has been taking AXITINIB which is an antineoplastic with last dose being 6/3 at 1800. Hazardous drug precautions using double gloves need to be followed for 3 days for both urine and stool contact. Primary nurse Jennifer and student nurse notified and signage posted.
--- NOTE | 2020-12-10 10:38 | NUR ---
Initial visit attempt; Patient resting, Quahogger left Prayer Card so that patient would be aware of the availability of Spiritual Care at our hospital.
[2020-12-10 10:50] VITALS: BP 122/46; PULSE 71; TEMP 98.9
--- NOTE | 2020-12-10 11:21 | NUR ---
barrow worker met with patient to discuss discharge plan. Patient lives at home alone. Patient reports to being mostly independent will all activities of daily living, and does have [facility] coming in once a week.Reports that she has a cane and a walker that she uses PRN. PCP is Dr. Manpreet Valadez and utilizes [facility] pharmacy with no trouble affording medications. Patient reports that she does have a DPOA-HC established and that her agent is her niece Estrellita ([phone]) who is present at bedside. barrow worker verified that the hospital has a copy on file. Patient is planning on returning home. Discharge plan: Home
--- NOTE | 2020-12-10 14:50 | NUR ---
Referral made to [facility] in [facility].
--- NOTE | 2020-12-10 16:29 | NUR ---
powder worker tnt met with Suki to talk about SNF vs 24hr care per PT/OT recommendations. Patient resting at this time. SW discussed options or [facility] vs [facility] vs PT/OT. Discussed how / care would be private pay. Biggest concern is the patient's cancer tx and if she would be able to take it during SNF period.Patient is taking Inlyta 1mg tablets x6 per day, however is to stop taking it over this next week to give her body a rest- per Dr. Steven. Reported that this is a "stephani funded" chemo treatment and that [facility] does not cover it's cost. In addition to [facility], Angelia at [facility] contacted and referral faxed. Angelia is going to look into the parameters surrounding this situation and get back to me (patient has approx. 3 months supply on hand). Message has been left with Dr. Steven's office to see if pausing the medication is an option. Discharge plan: *possible SNF placement pending chemo parameters*
[2020-12-10 16:40] VITALS: BP 133/54; PULSE 71; TEMP 98.2
--- NOTE | 2020-12-10 18:00 | NUR ---
Patient had an ok day. Scheduled medications given. Shift assessment preformed. PRN tylenol given for headache. Student assissted with cares this AM. Med list updated and reviewed with pharmacy. Patient denies any further pain, discomfort, SOA, or further needs at this time. Call light in reach. Fall precautions in place. Suki López at the bedside.
[2020-12-10] MEDS ORDERED: EFUDEX40 GM TP (18:34)
[2020-12-10 20:06] VITALS: BP 115/49; PULSE 64; TEMP 98.7
[2020-12-11 00:13] VITALS: BP 146/55; PULSE 56; TEMP 98.3
[2020-12-11 04:08] VITALS: BP 143/54; PULSE 61; TEMP 98.4
[2020-12-11 07:15] LABS: BASO # 0.1 K/mm3 (0.0-0.2); BASO % 0.5 % (0.0-2.0); EOS # 0.1 K/mm3 (0.0-0.7); EOS % 1.1 % (0-4.0); GRAN # 6.1 K/mm3 (1.4-6.5); HEMOGLOBIN 11.4 g/dl (12.5-16.0); LYMPH # 3.7 K/mm3 (1.2-3.4); LYMPH % 32.9 % (20.0-51.0); MEAN CELL VOLUME 95 fl (80.0-100.0); MEAN CORPUSCULAR HEMOGLOBIN 30 pg (27.0-31.0); MEAN CORPUSCULAR HGB CONC 32 g/dl (33.0-37.0); MEAN PLATELET VOLUME 9.7 fl (7.4-10.4); MONO # 1.2 K/mm3 (0.1-0.6); MONO % 10.6 % (1.7-9.3); PLATELET COUNT 359 K/mm3 (130-400); RED BLOOD COUNT 3.78 M/mm3 (4.10-5.30); REDCELL DISTRIBUTION WIDTH-CV 14.9 % (11.5-14.5)
[2020-12-11 07:19] LABS: HEMATOCRIT 35.9 % (37.0-47.0)
--- NOTE | 2020-12-11 07:20 | NUR ---
Bedside shift report complete. Pt. awake, sitting up in bed. Pt. requesting this RN for help with breakfast. Student nurse Mariah and instructor Herlinda in the room with the pt. as well. Pt. denies other needs at this time. Call light and belongings in reach.
[2020-12-11 07:32] LABS: CALCIUM 8.3 mg/dL (8.4-10.2); CREATININE, serum 0.56 mg/dL (0.57-1.11); POTASSIUM 3.4 mmol/L (3.5-4.5)
[2020-12-11 07:40] VITALS: BP 137/54; PULSE 57; TEMP 98
[2020-12-11 10:50] VITALS: BP 136/52; PULSE 58; TEMP 98.1
--- NOTE | 2020-12-11 14:19 | NUR ---
Cl[employer] Specialists faxed clinical updates to Angelia at [facility] and advised Angelia that they would be second preference. KWASI collaborated with [facility] Director, Vera who advised she should be able to accept but inquired if patient's upcoming scan on the can be held off until after discharge from [facility]. Message left for BRANDAN Mccarthy at the Cancer Center. Discharge Plan: [facility], second preference ([facility]) is also able to accept.
--- NOTE | 2020-12-11 14:57 | NUR ---
Blower Mechanic spoke with Shari RN at the Cancer Center who advised patient's scan can be delayed until after discharge from [facility]. SW notified [facility] Director, Vera. Discharge Plan: [facility], second preference ([facility]) can also accept
[2020-12-11 16:47] VITALS: BP 148/58; PULSE 62; TEMP 98.1
--- NOTE | 2020-12-11 17:27 | NUR ---
Yqdi-ap-tlvl discussion w/ Dr. Marley regarding neuro check orders. Dr. Marley reports neuro checks can be discontinued. Pt. progressing w/ plan of care. Potassium replaced per orders today. Pt. has been OOB to the bathroom w/ standby shift throughout the day. Pt. denies minimal pain to neck & shoulders, pt. reports relief with muscle relief cream. Needs addressed. Bed alarm on, call light and belongings in reach. Pt.'s niece has visited twice today and has been involved w/ plan of care.
[2020-12-11 20:00] VITALS: BP 156/61; PULSE 69; TEMP 98.4
[2020-12-12] VITALS: BP 141/57; PULSE 61; TEMP 97.3
[2020-12-12 04:00] VITALS: BP 179/73; PULSE 62; TEMP 97.8
--- NOTE | 2020-12-12 06:48 | NUR ---
Pt. progressing w/ plan of care. This RN to assume care for the day shift. Report received from BRANDAN Dobbins. Pt. requesting to order breakfast. Student nurse Erin to assist with pt.'s care today as well. Needs addressed, call light and belongings in reach.
[2020-12-12 07:47] LABS: HEMATOCRIT 37.1 % (37.0-47.0); HEMOGLOBIN 11.8 g/dl (12.5-16.0); MEAN CELL VOLUME 97 fl (80.0-100.0); MEAN CORPUSCULAR HEMOGLOBIN 31 pg (27.0-31.0); MEAN CORPUSCULAR HGB CONC 32 g/dl (33.0-37.0); MEAN PLATELET VOLUME 9.3 fl (7.4-10.4); PLATELET COUNT 369 K/mm3 (130-400); RED BLOOD COUNT 3.84 M/mm3 (4.10-5.30); REDCELL DISTRIBUTION WIDTH-CV 15.2 % (11.5-14.5)
[2020-12-12 07:49] VITALS: BP 152/60; PULSE 64; TEMP 97.7
[2020-12-12 08:16] LABS: CALCIUM 8.7 mg/dL (8.4-10.2); CREATININE, serum 0.58 mg/dL (0.57-1.11)
[2020-12-12 08:37] LABS: ANISOCYTOSIS 1+; LYMPHOCYTE 39 % (20.0-51.0); NEUTROPHILS 49 % (42.0-75.2); PLATELET ESTIMATE NORMAL (NORMAL)
[2020-12-12] MEDS ORDERED: OMNICEF 300MG300 MG PO (09:27)
[2020-12-12 11:29] VITALS: BP 125/64; PULSE 70; TEMP 98.3
--- NOTE | 2020-12-12 11:44 | NUR ---
Pt. progressing w/ plan of care. Plan for pt. to go to [facility] today. AM meds administered by student nurse w/ supervision of instructor Oma. PRN insulin to be administered for elevated blood sugar. Concepcion, director of inpatient rehab in to check in with the patient and her niece Suki. Pt. OOB sitting in chair, eating lunch at this time. Needs addressed, call light and belongings in reach.
--- NOTE | 2020-12-12 12:41 | NUR ---
Patient to discharge to [facility] today.
--- NOTE | 2020-12-12 14:30 | NUR ---
Pt. discharged to inpatient rehab. Report given to BRANDAN Smith. Pt. and her niece Suki verbalized and demontrated understanding of plan of care. Pt.'s IV has been removed since yesterday. Afternoon medications administered per order. Pt. brought over to inpatient rehab, pt. ambulated herself using gait belt and the walker.
--- NOTE | 2020-12-12 14:31 | NUR ---
Primary nurse was assisted with [phone] patient care by [facility] student Erin Bowen and [facility] instructor Oma Freire MSN, RN
== END 2020-12-12 14:30 | DRG 871 ==
LOC: COL.ER 11:08 → MEDICAL 14:17
PROVIDERS: Physician Assistant; ADMIT Student in an Organized Health Care Education/Training Program
DX: A41.9 Sepsis, unspecified organism (principal); G93.41 Metabolic encephalopathy; N39.0 Urinary tract infection, site not specified; R11.2 Nausea with vomiting, unspecified; M06.9 Rheumatoid arthritis, unspecified; E03.9 Hypothyroidism, unspecified; Z20.822 Contact with and (suspected) exposure to COVID-19; Z66 Do not resuscitate; R53.81 Other malaise; E11.9 Type 2 diabetes mellitus without complications; R25.1 Tremor, unspecified; I10 Essential (primary) hypertension; Z85.53 Personal history of malignant neoplasm of renal pelvis; Z90.710 Acquired absence of both cervix and uterus; Z79.84 Long term (current) use of oral hypoglycemic drugs
CPT/HCPCS: 99222-AI; 99232-AI; 99233-AI; 99239; J0692; J0696; J1644; J1815; J2405; J7030; J7512

== ENCOUNTER 2020-12-12 13:51 | Inpatient (IN) | payer MEDICARE, BC ==
[~2020-12-12] VITALS: Ht 157.5 cm; Wt 51.1 kg
[~2020-12-12 13:51] MED LIST changes: +ANTACID500 M1; +ASCORBATE CALCIUM PO; +EFUDEX40 GM TP; +FERROUS SU300 MG/5 M PO; +FOSAMAX 70MG TA70 MG PO; +FOSAMAX5 MG; +INDERAL 10MG10 MG PO; +METHOTREXA2.5 MG/TAB PO; +OMEGA-3 1000 MG1 CAP PO; +OMNICEF 300MG300 MG PO; +PRINIVIL10 MG PO; +VITAMIN D PO; +VTAMINC250TA PO; +[UNRECOGNIZED DRUG - OTHER] PO
--- NOTE | 2020-12-12 14:15 | NUR ---
Received report from BRANDAN Albert. Patient is being transferred from [facility] to [facility], room 355 to room 335. Patient is A & O x4, with resolving confusion and SBA. IV and tele have been dc'd. Patient had a CT with negative results. Patient is a diabetic ACHS and ranges from BG of 94-224. Patient's methotrexate is on hold and will resume on 12/14/20, chemo drugs and Metformin are on hold. Patient is on chemo precaution for urine but has not chemo since hospital stay. 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 Jordyn is SBA and has a walker but does not use one at home so has to be reminded to use it. Call light, bedside table and safety alarms are on. Will continue to monitor patient throughout shift. .
[2020-12-12 17:06] VITALS: BP 156/62; PULSE 92; TEMP 97.8
[2020-12-12 17:07] VITALS: BP 156/62; PULSE 92; TEMP 97.8
[2020-12-12 18:00] VITALS: BP 156/62; PULSE 92; TEMP 97.8
--- NOTE | 2020-12-12 20:00 | NUR ---
PT RELATES SHE SEES VAPORS COMING FROM [facility] WHEN HEATER WAS TURNED UP EARLIER. NO VAPORS FOUND. PT CONFUSED AT TIMES COOPERATIVE AND PLEASANT. CALL LIGHT IN REACH. BED ALARMST.
[2020-12-13 04:24] VITALS: BP 150/62; PULSE 61; TEMP 98.5
--- NOTE | 2020-12-13 08:48 | NUR ---
Pt is on Fluorouricil Cream that can be applied twice daily. Please follow chemotherapy precautions when applying or having contact with the treated area--double chemotherapy gloves and gown. She also recieves methotrexate po on Saturdays and this drug will be present in urine and stool x3 days and will also require PPE with contact of urine and stool during thist dulce. Chemotherapy precautions signage placed and cart at doorway.
--- NOTE | 2020-12-13 11:15 | NUR ---
Patient alert and oriented, answers questions appropriately. See assessment. Ambulates and toilets independently using front wheel walker. States "I don't think I will be here long, I just need to gain some strength." Patient inquires about medications she currently has ordered, states she has someone at home who monitors her medications for her. No c/o at this time.
--- NOTE | 2020-12-13 14:39 | NUR ---
SW met with the patient to complete intake, as the patient is new to [facility]. The patient lives alone in [place]. She states that her best friend, Kristen Rios (ph#[phone]), lives outside of [place]. She reports independence with ADLs and has a cane, walker, and wheelchair. The patient's PCP is Dr. Manpreet Valadez and she receives her medications from [facility]. The patient's DPOA-HC in EMR and it designates her niece, Suki (ph#[phone]). Suki lives in [place]. The patient was resting and had no concerns for SW at this time. SW to continue to follow.
[2020-12-13 18:03] VITALS: BP 137/60; PULSE 73; TEMP 98.1
--- NOTE | 2020-12-13 18:51 | NUR ---
RECEIVED CHANGE OF SHIFT REPORT FROM DAY SHIFT NURSE. PATIENT UP IN CHAIR, DENIES ANY NEEDS OR CONCERNS AT THIS TIME. CALL LIGHT WITHIN REACH.
--- NOTE | 2020-12-13 19:23 | NUR ---
PATIENT DENIES CHEST PAIN/SOA/NAUSEA AT THIS TIME. DENIES NUMBNESS/TINGLING TO EXTREMITIES AT THIS TIME, REPORTS DOES HAVE INCREASED SENSITIVITY TO RUE/RLE WITH TACTILE TOUCH DUE TO ARTHRITIS.
[2020-12-14 05:02] VITALS: BP 156/56; PULSE 58; TEMP 97.8
--- NOTE | 2020-12-14 07:13 | NUR ---
CHANGE OF SHIFT REPORT GIVEN TO DAY SHIFT NURSE, LEONOR GIPSON.
[2020-12-14 16:41] VITALS: BP 120/59; PULSE 71; TEMP 98.6
--- NOTE | 2020-12-14 19:10 | NUR ---
RECEIVED CHANGE OF SHIFT REPORT FROM DAY SHIFT NURSE. PATIENT DENIES ANY NEEDS OR CONCERNS AT TIME OF REPORT. CALL LIGHT WITHIN REACH.
[2020-12-15 05:59] VITALS: BP 124/57; PULSE 58; TEMP 98.4
--- NOTE | 2020-12-15 07:31 | NUR ---
CHANGE OF SHIFT REPORT GIVEN TO DAY SHIFT NURSE, LEONOR GIPSON.
[2020-12-15 16:38] VITALS: BP 118/51; PULSE 73; TEMP 98
[2020-12-16 05:26] VITALS: BP 126/70; PULSE 63; TEMP 97.6
--- NOTE | 2020-12-16 10:14 | NUR ---
Received report from night nurse. Patient is sleeping in bed. Call light and bedside table are within reach. Will continue to monitor patient throughout shift.
--- NOTE | 2020-12-16 12:37 | NUR ---
Per Dr. Kumar's request this nurse called Dr. Hassan's nurse to see if Dr. Hassan wanted to start tapering down the patients Prednisone which is currently at 15 mg or leave it where it is. This nurse is waiting on a call back from Dr. Hassan's office.
--- NOTE | 2020-12-16 15:00 | NUR ---
Patient is through with all therapies for the day and is resting in recliner and friend, Kristen is at bedside. Call light and bedside table are within reach.
--- NOTE | 2020-12-16 16:00 | NUR ---
This nurse spoke with Dr. Hassan's nurse, JOHN Valle in reference to the patients Prednisone. Dr. Knapp's nurse reported that if Dr. Kumar wants to start tapering down Prednisone to start with 12.5 mg x 2 weeks, 10.00 mg x 2 weeks, and 7.5 mg thereafter. Patient is currently on 15 mg of prednisone. Family is in agreement with care plan.
--- NOTE | 2020-12-16 16:37 | NUR ---
Admission QIM scores were reviewed by the team. Code of 4 chosen for oral hygiene was determined by team discussion to be the most usual performance before interventions for this patient during the assessment period. Code of 4 chosen for toilet hygiene was determined by team discussion to be the most usual performance for this patient during the assessment period. Code of 4 chosen for toileting transfers was determined by team discussion to be the most usual performance for this patient during the assessment period. Code of 4 chosen for shower/bathe self was determined by team discussion to be the most usual performance for this patient during the assessment period. Code of 4 chosen for lower body dressing was determined by team discussion to be the most usual performance for this patient during the assessment period. Code of 4 for sit to stand was determined by team discussion to be the most usual performance for this patient during the assessment period. Code of 4 chosen for sit to stand was determined by team discussion to be the most usual performance for this patient during the assessment period. Code of 4 for chair/bed to chair transfers was determined by team discussion to be the most usual performance for this patient during the assessment period.--Vera Najera,
[2020-12-16 17:53] VITALS: BP 122/55; PULSE 66; TEMP 99
[2020-12-17 05:05] VITALS: BP 124/55; PULSE 62; TEMP 97.8
--- NOTE | 2020-12-17 06:55 | NUR ---
Report received from BRANDAN Young. Patient is sleeping in bed. Call light and bedside table are within reach. Will continue to monitor patient throughout shift.
--- NOTE | 2020-12-17 16:14 | NUR ---
IPR Director notified KWASI that the team has set a discharge date for tomorrow, 12/18, with outpatient PT/OT. KWASI met with the patient and her friend, Kristen, and reviewed the above. The patient is in agreement to the plan. Her and her friend preferred outpatient PT/OT at [facility]. KWASI contacted Grace at [facility] and secured the patient an outpatient PT appointment on 12/24 at 1015 and an OT appointment on 12/25 at 1245. KWASI provided the appointment times to the patient's RN. KWASI will need to fax the patient's orders to [facility].
[2020-12-17 18:09] VITALS: BP 148/60; PULSE 74; TEMP 98.6
--- NOTE | 2020-12-17 22:11 | NUR ---
Patient denies having pain and discomfort. Denies SOB and dyspnea. LS CTA. Respirations even and unlabored. HRR. Capillary refill less than 3 seconds. Non-tenting skin turgor. BSAx4. Abdomen soft and non-tender. No edema. Voices no questions, needs, or concerns at this time. Resting in bed with call light within reach.
[2020-12-18 05:12] VITALS: BP 124/56; PULSE 61; TEMP 98.4
--- NOTE | 2020-12-18 05:40 | NUR ---
Patient has voiced no questions, needs, or concerns this shift. Has denied having pain and discomfort. Resting in bed with call light within reach.
[2020-12-18] MEDS ORDERED: VALIUM 5MG T5 MG/TAB PO (10:04)
--- NOTE | 2020-12-18 11:02 | NUR ---
The patient is to discharge back home today, 12/18, with outpatient PT/OT from [facility]. SW faxed the patient's orders to [facility]. No additional needs at this time.
--- NOTE | 2020-12-18 13:34 | NUR ---
PT DISCHARGED HOME ON STABLE CONDITION. D/C INSTRUCTIONS, MEDICATIONS AND FOLLUW UP REVEIWED WITH PT.QUESTIONS AND CONCERNS ADDRESSED.PT ESCOTED VIA WC TO MAIN ENTRACE. ALL PERSONAL BELONGINGS SENT WITH PT.
--- NOTE | 2020-12-19 13:09 | NUR ---
Discharge QIM scores were reviewed by the team. Code of 4 chosen for walk 150 feet was determined by team discussion to be the most usual performance for this patient during the assessment period. Code of 4 chosen for walk 10 feet on uneven surface was determined by team discussion to be the most usual performance for this patient during the assessment period.--Vera Najera, PD
== END 2020-12-18 13:36 | disposition home or self-care (01) | DRG 947 ==
PROVIDERS: ADMIT Internal Medicine
DX: R53.81 Other malaise (principal); A41.9 Sepsis, unspecified organism; N39.0 Urinary tract infection, site not specified; G93.40 Encephalopathy, unspecified; C79.00 Secondary malignant neoplasm of unspecified kidney and renal pelvis; E03.9 Hypothyroidism, unspecified; Z66 Do not resuscitate; I10 Essential (primary) hypertension; B96.20 Unspecified Escherichia coli [E. coli] as the cause of diseases classified elsewhere; M06.9 Rheumatoid arthritis, unspecified; E11.9 Type 2 diabetes mellitus without complications; R26.89 Other abnormalities of gait and mobility; G25.0 Essential tremor; Z73.6 Limitation of activities due to disability; Z88.8 Allergy status to other drugs, medicaments and biological substances; Z79.84 Long term (current) use of oral hypoglycemic drugs; Z79.52 Long term (current) use of systemic steroids; Z79.2 Long term (current) use of antibiotics; Z92.21 Personal history of antineoplastic chemotherapy; H81.10 Benign paroxysmal vertigo, unspecified ear
CPT/HCPCS: 99222-AI; 99232-AI; 99239; J1644; J7512; J8610

== ENCOUNTER 2021-02-11 10:30 | Outpatient (RCR) | payer MEDICARE, BC ==
[~2021-02-11 10:30] MED LIST changes: +VALIUM 5MG T5 MG/TAB PO
== END 2021-03-06 14:28 | disposition home or self-care (01) ==
LOC: WSPT 10:30
DX: A41.9 Sepsis, unspecified organism (principal)

== ENCOUNTER → 2021-03-13 | Outpatient (CLI) | payer MEDICARE, BC | LOC: COL.RAD 09:19 | DX: C64.2 Malignant neoplasm of left kidney, except renal pelvis (principal); R93.7 Abnormal findings on diagnostic imaging of other parts of musculoskeletal system | CPT/HCPCS: A9503 ==

== ENCOUNTER → 2021-09-22 | Outpatient (CLI) | payer MEDICARE, BC | LOC: COL.RAD 09:20 | DX: C64.2 Malignant neoplasm of left kidney, except renal pelvis (principal); K80.80 Other cholelithiasis without obstruction; N28.89 Other specified disorders of kidney and ureter; M89.9 Disorder of bone, unspecified; J98.4 Other disorders of lung; K76.89 Other specified diseases of liver | CPT/HCPCS: Q9967 ==